=== PATIENT | female | born 1975 | race Caucasian/White ===

== ENCOUNTER 2017-11-20 22:03 | Emergency (ER) | payer MEDICAID ==
[~2017-11-20] VITALS: Ht 152.4 cm; Wt 71.7 kg
[2017-11-21 01:06] VITALS: BP 111/82
== END 2017-11-21 01:06 | disposition home or self-care (01) ==
LOC: ED 22:03
DX: S16.1XXA Strain of muscle, fascia and tendon at neck level, initial encounter (principal); S09.90XA Unspecified injury of head, initial encounter; J45.909 Unspecified asthma, uncomplicated; W22.8XXA Striking against or struck by other objects, initial encounter; Y93.89 Activity, other specified; Y92.89 Other specified places as the place of occurrence of the external cause; Y99.8 Other external cause status
CPT/HCPCS: J1885